=== PATIENT | female | born 1945 | race Two or more races ===

== ENCOUNTER → 2019-10-17 | Outpatient (CLI) | payer MEDICARE ==
--- NOTE | 2019-10-17 16:37 | KCIC ---
Examination: 2 views of the lumbar spine and 2 views of the left hip HISTORY: History of low back pain, hip pain COMPARISON: None available. FINDINGS: The lumbar vertebral body heights are maintained. Osseous demineralization limits evaluation. Moderate intervertebral disc height loss identified in the lumbar spine. Moderate facet degenerative changes. The left femoral head is within the acetabulum. Mild joint space loss identified in the left hip joint likely degenerative changes. IMPRESSION: 1. Moderate degenerative changes lumbar spine. If pain persists consider MRI. 2. Mild degenerative changes left hip joint. Electronically signed by: Kwasi Caban MD (10/17/2019 4:34 PM) [id number]
== END | disposition home or self-care (01) ==
LOC: KCIC 14:32
PROVIDERS: ATTEND Family Medicine
DX: M16.12 Unilateral primary osteoarthritis, left hip (principal); M47.816 Spondylosis without myelopathy or radiculopathy, lumbar region; G89.29 Other chronic pain
CPT/HCPCS: 72100; 73502